=== PATIENT | female | born 1980 | race Caucasian/White ===

== ENCOUNTER → 2018-10-29 | Outpatient (CLI) | payer MEDICARE | END | disposition home or self-care (01) | LOC: WOUND 13:51 | PROVIDERS: ATTEND Family Medicine | DX: T25.032A Burn of unspecified degree of left toe(s) (nail), initial encounter (principal); E10.621 Type 1 diabetes mellitus with foot ulcer; L97.521 Non-pressure chronic ulcer of other part of left foot limited to breakdown of skin; E10.21 Type 1 diabetes mellitus with diabetic nephropathy; F41.9 Anxiety disorder, unspecified; G82.20 Paraplegia, unspecified; X11.0XXA Contact with hot water in bath or tub, initial encounter; Y93.89 Activity, other specified; Y92.89 Other specified places as the place of occurrence of the external cause; Y99.8 Other external cause status | CPT/HCPCS: G0463 ==

== ENCOUNTER → 2018-11-05 | Outpatient (CLI) | payer MEDICARE | END | disposition home or self-care (01) | LOC: WOUND 10:52 | PROVIDERS: ATTEND Family Medicine | DX: T25.032D Burn of unspecified degree of left toe(s) (nail), subsequent encounter (principal); E10.621 Type 1 diabetes mellitus with foot ulcer; L97.521 Non-pressure chronic ulcer of other part of left foot limited to breakdown of skin; E10.21 Type 1 diabetes mellitus with diabetic nephropathy; G82.20 Paraplegia, unspecified; F41.9 Anxiety disorder, unspecified; X11.0XXD Contact with hot water in bath or tub, subsequent encounter | CPT/HCPCS: 97597 ==

== ENCOUNTER → 2018-11-12 | Outpatient (CLI) | payer MEDICARE | END | disposition home or self-care (01) | LOC: WOUND 09:34 | PROVIDERS: ATTEND Internal Medicine Cardiovascular Disease | DX: T25.032D Burn of unspecified degree of left toe(s) (nail), subsequent encounter (principal); E10.621 Type 1 diabetes mellitus with foot ulcer; L97.521 Non-pressure chronic ulcer of other part of left foot limited to breakdown of skin; E10.21 Type 1 diabetes mellitus with diabetic nephropathy; G82.20 Paraplegia, unspecified; F41.9 Anxiety disorder, unspecified; X11.0XXD Contact with hot water in bath or tub, subsequent encounter | CPT/HCPCS: G0463 ==

== ENCOUNTER → 2019-11-16 | Outpatient (CLI) | payer MEDICARE ==
[2019-11-16 17:14] LABS: ALANINE AMINOTRANSFERASE 29 U/L (12-78); ALBUMIN 3.8 g/dL (3.4-5.0); ANION GAP 9 mmol/L (5-15); CALCIUM 9.2 mg/dL (8.5-10.1); CHLORIDE 106 mmol/L (98-107); CREATININE 0.56 mg/dL (0.55-1.02)
[2019-11-16 17:16] LABS: ALKALINE PHOSPHATASE 52 U/L (45-117); BILIRUBIN,TOTAL 0.6 mg/dL (0.2-1.0); TOTAL PROTEIN 7.6 g/dL (6.4-8.2)
== END | disposition home or self-care (01) ==
LOC: LAB 16:44
PROVIDERS: ATTEND Nurse Practitioner Family
DX: R94.5 Abnormal results of liver function studies (principal)
CPT/HCPCS: 36415; 80053

== ENCOUNTER 2020-09-05 09:39 | Day surgery (SDC) | payer MEDICARE ==
[~2020-09-05] VITALS: Ht 160 cm; Wt 46.0 kg
[2020-09-05] MEDS ORDERED: CHLORHEXIDINE 15 ML UDC ONE (09:55)
[2020-09-05 10:38] VITALS: BP 157/78
[2020-09-05] MEDS ORDERED: CHLORHEXIDINE 15 ML UDC PO ONE (11:00)
[2020-09-05] MEDS ORDERED: LACTATED RINGERS 1,000 ML IV SCH (11:00)
[2020-09-05] MEDS ORDERED: VALA10007 PO (11:06)
[2020-09-05] MEDS ORDERED: ASCO100018 PO (11:06)
[2020-09-05] MEDS ORDERED: LYSI500T8 PO (11:06)
[2020-09-05] MEDS ORDERED: LORA10TA75 PO (11:06)
[2020-09-05] MEDS ORDERED: CHOL20008 PO (11:06)
[2020-09-05] MEDS ORDERED: NORE1TAB23 PO (11:06)
[2020-09-05] MEDS ORDERED: MULT-658 PO (11:06)
[2020-09-05] MEDS ORDERED: FLUT50DI NS (11:06)
[2020-09-05] MEDS ORDERED: SCOPOLAMINE 1MG PATCH TD ONE (11:25)
[2020-09-05] MEDS ORDERED: FENTANYL PF 100 MCG/2ML ONE (11:29)
[2020-09-05] MEDS ORDERED: MIDAZOLAM 1 MG/ML, 2ML ONE (11:29)
[2020-09-05] MEDS ORDERED: PROPOFOL 100 ML ONE (11:29)
[2020-09-05] MEDS ORDERED: PROPOFOL 10 MG/ML, 50ML ONE (11:52)
[2020-09-05] MEDS ORDERED: CEFAZOLIN 1,000 MG ONE (11:52)
[2020-09-05] MEDS ORDERED: ONABOTULINUMTOXINA 100 UNITS ONE (11:53)
[2020-11-29] MEDS ORDERED: ACETAMINOPHEN PO (15:28)
[2020-11-29] MEDS ORDERED: ACET-1600 PO (15:28)
[2020-11-29] MEDS ORDERED: FOLI1TAB47 PO (15:28)
[2020-11-29] MEDS ORDERED: L.AC1CAP6 PO (15:28)
[2020-11-29] MEDS ORDERED: CODEINE PO (15:28)
[2020-11-29] MEDS ORDERED: FLUT9.9S NS (15:28)
== END 2020-09-05 14:00 | disposition home or self-care (01) ==
LOC: OUT 09:39
PROVIDERS: ATTEND Urology
DX: N21.0 Calculus in bladder (principal); N31.9 Neuromuscular dysfunction of bladder, unspecified; N39.41 Urge incontinence; N28.89 Other specified disorders of kidney and ureter; G37.3 Acute transverse myelitis in demyelinating disease of central nervous system; G82.20 Paraplegia, unspecified; Z20.822 Contact with and (suspected) exposure to COVID-19; Z79.899 Other long term (current) drug therapy; Z88.8 Allergy status to other drugs, medicaments and biological substances
CPT/HCPCS: 36415; 52287; 82360; 84703; 87635; 88300; J0585; J0690; J2250; J2704; J3010; J7120

== ENCOUNTER → 2020-11-29 | Outpatient (CLI) | payer MEDICARE ==
[~2020-11-29] MED LIST: ACET-1600 PO; ACETAMINOPHEN PO; ASCO100018 PO; CHOL20008 PO; CODEINE PO; FLUT50DI NS; FLUT9.9S NS; FOLI1TAB47 PO; L.AC1CAP6 PO; LORA10TA75 PO; LYSI500T8 PO; MULT-658 PO; NORE1TAB23 PO; VALA10007 PO
== END | disposition home or self-care (01) ==
LOC: STAR 14:39
PROVIDERS: ATTEND Surgery
DX: Z20.822 Contact with and (suspected) exposure to COVID-19 (principal); K80.10 Calculus of gallbladder with chronic cholecystitis without obstruction
CPT/HCPCS: U0003; U0005

== ENCOUNTER 2020-12-04 11:55 | Day surgery (SDC) | payer MEDICARE ==
[~2020-12-04] VITALS: Ht 160 cm; Wt 44.5 kg
[2020-12-04] MEDS ORDERED: CHLORHEXIDINE 15 ML UDC ONE (12:20)
[2020-12-04] MEDS ORDERED: LACTATED RINGERS 1,000 ML IV SCH (12:30)
[2020-12-04] MEDS ORDERED: CHLORHEXIDINE 15 ML UDC PO ONE (12:30)
[2020-12-04 13:03] VITALS: BP 111/74
[2020-12-04] MEDS ORDERED: MIDAZOLAM 1 MG/ML, 2ML ONE (13:17)
[2020-12-04] MEDS ORDERED: FENTANYL PF 250 MCG/5ML ONE (13:17)
[2020-12-04] MEDS ORDERED: DEXAMETHASONE 4 MG/ML, 1ML ONE (13:48)
[2020-12-04] MEDS ORDERED: PROPOFOL 10 MG/ML, 20ML ONE (13:48)
[2020-12-04] MEDS ORDERED: ONDANSETRON 2MG/ML, 2ML ONE (13:48)
[2020-12-04] MEDS ORDERED: SUGAMMADEX 200 MG/2 ML IVPush ONE (13:48)
[2020-12-04] MEDS ORDERED: CEFAZOLIN 1,000 MG ONE (13:48)
[2020-12-04] MEDS ORDERED: ROCURONIUM 10 MG/ML,10ML ONE (13:48)
[2020-12-04] MEDS ORDERED: BUPIVACAINE/PF 0.5% INFIL ONE (14:23)
[2020-12-04 14:30] LABS: MICROSCOPIC INDICATED
[2020-12-04 14:31] LABS: HCG UR SG > 1.030 (1.003-1.030)
[2020-12-04] MEDS ORDERED: PROC10TA78 PO (14:51)
[2020-12-04] MEDS ORDERED: TRAM50TA2 PO (14:52)
[2020-12-04] MEDS ORDERED: MEPERIDINE/PF 25MG/ML,1ML ONE (14:56)
[2020-12-04] MEDS ORDERED: FENTANYL PF 100 MCG/2ML ONE (14:56)
[2020-12-04] MEDS: FENTANYL PF 100 MCG/2ML IV PRN ×2 (14:59→15:11)
[2020-12-04] MEDS ORDERED: LABETALOL 5MG/ML, 20ML IV PRN (15:00)
[2020-12-04] MEDS ORDERED: METOCLOPRAMIDE 5 MG/ML, 2ML IV PRN (15:00)
[2020-12-04] MEDS ORDERED: ONDANSETRON 2MG/ML, 2ML IVPush PRN ×2 (15:00)
[2020-12-04] MEDS ORDERED: hydrALAzine 20 MG/ML, 1ML IV PRN (15:00)
[2020-12-04] MEDS ORDERED: PROMETHAZINE 25 MG/ML, 1ML IV PRN (15:00)
[2020-12-04] MEDS ORDERED: morphine SULFATE 10 MG/ML, 1ML IVPush PRN (15:00)
[2020-12-04] MEDS ORDERED: ALBUTEROL SULFATE 2.5 MG/3 ML NPPB PRN (15:00)
[2020-12-04] MEDS ORDERED: DIAZEPAM 5 MG/ML, 2ML IV PRN ×2 (15:00)
[2020-12-04] MEDS ORDERED: OXYcodone 5 MG/5 ML ORAL.SOL UDC PO PRN (15:00)
[2020-12-04] MEDS ORDERED: HYDROmorphone 1 MG/ML, 1ML INJ IV PRN (15:00)
[2020-12-04] MEDS ORDERED: KETOROLAC 30 MG/1 ML IVPush PRN (15:00)
[2020-12-04] MEDS ORDERED: KETOROLAC 30 MG/1 ML IV PRN (15:00)
[2020-12-04] MEDS ORDERED: MEPERIDINE/PF 25MG/0.5ML IVPush PRN (15:00)
[2020-12-04] MEDS ORDERED: DIPHENHYDRAMINE 50 MG/ML, 1ML IVPush PRN (15:00)
[2020-12-04] MEDS ORDERED: ACETAMINOPHEN 650 MG/20.3 ML UDC ONE (15:18)
[2020-12-04] MEDS ORDERED: KETOROLAC 30 MG/1 ML ONE (15:27)
[2020-12-04] MEDS ORDERED: ACETAMINOPHEN 650 MG/20.3 ML UDC PO PRN (15:30)
== END 2020-12-04 17:15 | disposition home or self-care (01) ==
LOC: OUT 11:55
PROVIDERS: ATTEND Surgery
DX: K80.10 Calculus of gallbladder with chronic cholecystitis without obstruction (principal); K66.0 Peritoneal adhesions (postprocedural) (postinfection); G82.20 Paraplegia, unspecified; Z79.899 Other long term (current) drug therapy; Z99.3 Dependence on wheelchair; Z83.79 Family history of other diseases of the digestive system
CPT/HCPCS: 47562; 81001; 81025; 87077; 87086; 87186; 88304; J1885; J2175; J2250; J3010; J7120; J0690; J1100; J2405; J2704

== ENCOUNTER → 2021-01-14 | Outpatient (CLI) | payer MEDICARE ==
[~2021-01-14] MED LIST changes: +PROC10TA78 PO; +TRAM50TA2 PO
== END | disposition home or self-care (01) ==
LOC: RAD 08:00
PROVIDERS: ATTEND Internal Medicine Infectious Disease
DX: N10 Acute pyelonephritis (principal); Z79.2 Long term (current) use of antibiotics; B96.1 Klebsiella pneumoniae [K. pneumoniae] as the cause of diseases classified elsewhere; Z16.12 Extended spectrum beta lactamase (ESBL) resistance; N39.0 Urinary tract infection, site not specified
CPT/HCPCS: 36573; C1751